=== PATIENT | male | born 1935 | race Caucasian/White ===

== ENCOUNTER 2018-07-21 16:07 | Inpatient (IN) | payer MEDICARE, OTHER, BC ==
[2018-07-21 21:35] LABS: ADD MAN DIFF? NO
[2018-07-21 21:37] LABS: WHITE BLOOD COUNT 18.5 10^3/ul (4.8-10.8)
[2018-07-21 21:37] LABS: BASOPHIL # 0.1 10^3/ul (0.0-0.1); BASOPHILS % 0.3 % (0.0-2.0); EOSINOPHILS % 0.1 % (0.0-7.0); HEMATOCRIT 38.2 % (42.0-52.0); HEMOGLOBIN 12.7 g/dl (14.0-18.0); LYMPHOCYTES # 2.1 10^3/ul (0.8-2.9); LYMPHOCYTES % 11.1 % (15.0-51.0); MEAN CORPUSCULAR HEMOGLOBIN 28.9 pg (29.0-33.0); MEAN CORPUSCULAR HGB CONC 33.2 g/dl (32.0-37.0); MEAN CORPUSCULAR VOLUME 86.8 fl (82.0-101.0); MONOCYTE # 1.3 10^3/ul (0.3-0.9); NEUTROPHILS % 80.9 % (39.0-77.0); PLATELET COUNT 456 10^3/UL (140-415); RED CELL DISTRIBUTION WIDTH 15.3 % (11.5-14.5)
[2018-07-21 21:52] LABS: INR 1.67; PROTIME 19.8 Sec (11.9-14.9); PT RATIO 1.5
[2018-07-21 21:54] LABS: PARTIAL THROMBOPLASTIN TIME 49.3 Sec (23.0-35.0)
[2018-07-21 22:06] LABS: ALBUMIN 3.9 g/dl (3.3-4.9); ALBUMIN/GLOBULIN RATIO 0.81; ALKALINE PHOSPHATASE 110 IU/L (42-121); ANION GAP 11 (5-13); ASPARTATE AMINO TRANSFERASE 16 IU/L (15-46); BILIRUBIN,INDIRECT 0.3 mg/dl (0-1.1); BILIRUBIN,TOTAL 0.3 mg/dl (0.2-1.3); BLOOD UREA NITROGEN 39 mg/dl (7-20); CALCIUM 9.9 mg/dl (8.4-10.2); CARBON DIOXIDE 23 mmol/L (21-31); CHLORIDE 104 mmol/L (97-110); CREATININE 1.39 mg/dl (0.61-1.24); GLUCOSE 114 mg/dl (70-220); SODIUM 138 mmol/L (135-144); TOTAL PROTEIN 8.7 g/dl (6.1-8.1)
[2018-07-21] MEDS: DIPHTH/TET/ACEL PERTUSS (ADULT) 0.5 ML VIAL IM* (22:10)
[2018-07-21] MEDS: SOD CHLORIDE 0.9% 1,000 ML IV (22:10)
[2018-07-21 22:11] LABS: ALANINE AMINOTRANSFERASE < 6 IU/L (13-69); ETHANOL < 10.0 mg/dl (0-0)
[2018-07-21 22:18] LABS: TROPONIN-I < 0.012 ng/ml (0.000-0.120)
[2018-07-21 22:37] LABS: FREE THYROXINE INDEX (Calc) 2.58 ug/ml (0.65-3.89); T3 UPTAKE 37.9 % (23.5-40.5); T4 (THYROXINE) 6.8 ug/dl (5.5-11.0)
[2018-07-21 23:32] LABS: AMPHETAMINE/METHAMPHETAMINE Negative (NEGATIVE); BARBITURATES Negative (NEGATIVE); BENZODIAZEPINES Negative (NEGATIVE); CANNABINOIDS Negative (NEGATIVE); COCAINE Negative (NEGATIVE); OPIATES Negative (NEGATIVE)
[2018-07-21] MEDS: CEFTRIAXONE 1 GM/50 ML (PMX) 50 ML IVPB (23:37)
[2018-07-21 23:38] LABS: ADD UMIC YES; UR ASCORBIC ACID NEGATIVE (NEGATIVE); UR BACTERIA MANY /HPF (NONE SEEN); UR BILIRUBIN (Dip) NEGATIVE (NEGATIVE); UR BLOOD (Dip) 3+ mg/dL (NEGATIVE); UR CLARITY TURBID (CLEAR); UR COLOR YELLOW (YELLOW); UR GLUCOSE (Dip) NEGATIVE (NEGATIVE); UR KETONES (Dip) NEGATIVE (NEGATIVE); UR LEUKOCYTE ESTERASE (Dip) 3+ Leu/ul (NEGATIVE); UR MUCUS FEW /HPF (NONE SEEN); UR NITRITE (Dip) NEGATIVE (NEGATIVE); UR RBC 121 /HPF (0-5); UR SPECIFIC GRAVITY (Dip) 1.013 (1.003-1.030); UR TOTAL PROTEIN (Dip) 2+ mg/dl (NEGATIVE); UR UROBILINOGEN (Dip) NEGATIVE (NEGATIVE); UR WBC > 182 /HPF (0-5)
[2018-07-22] MEDS ORDERED: ONDANSETRON 4 MG INJ IV ×2 (00:30)
[2018-07-22] MEDS ORDERED: BISACODYL (EC) 5 MG TAB PO (00:30)
[2018-07-22] MEDS ORDERED: ACETAMINOPHEN 325 MG TAB PO ×2 (00:30)
[2018-07-22] MEDS ORDERED: NACL 0.9% 3 ML SYG IV (00:30)
[2018-07-22] MEDS ORDERED: DOCUSATE SODIUM 100 MG CAP PO (00:30)
[2018-07-22] MEDS ORDERED: PENDING SANTYL ORDER FOR WOUND CARE XX (01:00)
[2018-07-22 06:06] LABS: ADD MAN DIFF? NO
[2018-07-22 06:28] LABS: BASOPHIL # 0.1 10^3/ul (0.0-0.1); BASOPHILS % 0.4 % (0.0-2.0); EOSINOPHILS % 0.3 % (0.0-7.0); HEMATOCRIT 33.4 % (42.0-52.0); HEMOGLOBIN 11.2 g/dl (14.0-18.0); LYMPHOCYTES # 2.1 10^3/ul (0.8-2.9); LYMPHOCYTES % 15.1 % (15.0-51.0); MEAN CORPUSCULAR HEMOGLOBIN 28.9 pg (29.0-33.0); MEAN CORPUSCULAR HGB CONC 33.5 g/dl (32.0-37.0); MEAN CORPUSCULAR VOLUME 86.3 fl (82.0-101.0); MEAN PLATELET VOLUME 9.7 fl (7.4-10.4); MONOCYTE # 1.5 10^3/ul (0.3-0.9); MONOCYTES % 10.5 % (0.0-11.0); NEUTROPHIL # 10.4 10^3/ul (1.6-7.5); NEUTROPHILS % 73.4 % (39.0-77.0); PLATELET COUNT 402 10^3/UL (140-415); RED BLOOD COUNT 3.87 10^6/ul (4.70-6.10); RED CELL DISTRIBUTION WIDTH 15.6 % (11.5-14.5)
[2018-07-22 06:28] LABS: WHITE BLOOD COUNT 14.2 10^3/ul (4.8-10.8)
[2018-07-22 07:10] LABS: ALANINE AMINOTRANSFERASE 7 IU/L (13-69); ALBUMIN 3.2 g/dl (3.3-4.9); ALBUMIN/GLOBULIN RATIO 0.82; ALKALINE PHOSPHATASE 84 IU/L (42-121); ANION GAP 11 (5-13); ASPARTATE AMINO TRANSFERASE 14 IU/L (15-46); BILIRUBIN,INDIRECT 0.3 mg/dl (0-1.1); BILIRUBIN,TOTAL 0.3 mg/dl (0.2-1.3); BLOOD UREA NITROGEN 37 mg/dl (7-20); CALCIUM 8.7 mg/dl (8.4-10.2); CARBON DIOXIDE 24 mmol/L (21-31); CHLORIDE 102 mmol/L (97-110); CREATININE 1.28 mg/dl (0.61-1.24); GLUCOSE 118 mg/dl (70-220); POTASSIUM 4.6 mmol/L (3.5-5.1); SODIUM 137 mmol/L (135-144); TOTAL PROTEIN 7.1 g/dl (6.1-8.1)
[2018-07-22 07:16] LABS: HEMOGLOBIN A1C 5.9 % (0-5.9)
[2018-07-22 07:42] LABS: THYROID STIMULATING HORMONE 0.946 MIU/L (0.465-4.680)
[2018-07-22] MEDS: SOD CHLORIDE 0.9% 500 ML IV (11:02)
[2018-07-22] MEDS: APIXABAN 5 MG TABLET PO ×2 (11:10→20:23)
[2018-07-23 05:19] LABS: ADD MAN DIFF? NO
[2018-07-23 05:22] LABS: WHITE BLOOD COUNT 10.6 10^3/ul (4.8-10.8)
[2018-07-23 05:22] LABS: BASOPHILS % 0.3 % (0.0-2.0); EOSINOPHILS # 0.1 10^3/ul (0.0-0.5); EOSINOPHILS % 0.7 % (0.0-7.0); HEMATOCRIT 32.8 % (42.0-52.0); LYMPHOCYTES # 2.2 10^3/ul (0.8-2.9); LYMPHOCYTES % 20.9 % (15.0-51.0); MEAN CORPUSCULAR HGB CONC 33.5 g/dl (32.0-37.0); MEAN CORPUSCULAR VOLUME 86.5 fl (82.0-101.0); MEAN PLATELET VOLUME 9.5 fl (7.4-10.4); MONOCYTES % 9.6 % (0.0-11.0); NEUTROPHIL # 7.2 10^3/ul (1.6-7.5); NEUTROPHILS % 68.2 % (39.0-77.0); PLATELET COUNT 384 10^3/UL (140-415); RED BLOOD COUNT 3.79 10^6/ul (4.70-6.10); RED CELL DISTRIBUTION WIDTH 15.5 % (11.5-14.5)
[2018-07-23 05:49] LABS: ALANINE AMINOTRANSFERASE 10 IU/L (13-69); ALBUMIN/GLOBULIN RATIO 0.81; ALKALINE PHOSPHATASE 77 IU/L (42-121); ANION GAP 8 (5-13); ASPARTATE AMINO TRANSFERASE 12 IU/L (15-46); BILIRUBIN,INDIRECT 0.3 mg/dl (0-1.1); BILIRUBIN,TOTAL 0.3 mg/dl (0.2-1.3); BLOOD UREA NITROGEN 31 mg/dl (7-20); CARBON DIOXIDE 26 mmol/L (21-31); CHLORIDE 102 mmol/L (97-110); CREATININE 1.06 mg/dl (0.61-1.24); GLUCOSE 90 mg/dl (70-220); POTASSIUM 5.3 mmol/L (3.5-5.1); SODIUM 136 mmol/L (135-144); TOTAL PROTEIN 6.7 g/dl (6.1-8.1)
[2018-07-23 05:50] LABS: MAGNESIUM 1.9 mg/dl (1.7-2.5)
[2018-07-23] MEDS: APIXABAN 5 MG TABLET PO ×2 (09:21→21:39)
[2018-07-23 11:39] LABS: POTASSIUM 4.6 mmol/L (3.5-5.1)
[2018-07-23] MEDS: CEPHALEXIN 500 MG CAP PO ×3 (12:01→23:05)
[2018-07-24 05:12] LABS: ADD MAN DIFF? NO
[2018-07-24] MEDS: CEPHALEXIN 500 MG CAP PO ×4 (05:15→23:28)
[2018-07-24 05:22] LABS: WHITE BLOOD COUNT 11.2 10^3/ul (4.8-10.8)
[2018-07-24 05:22] LABS: BASOPHIL # 0.1 10^3/ul (0.0-0.1); BASOPHILS % 0.4 % (0.0-2.0); EOSINOPHILS # 0.1 10^3/ul (0.0-0.5); EOSINOPHILS % 0.8 % (0.0-7.0); HEMATOCRIT 33.1 % (42.0-52.0); LYMPHOCYTES # 1.9 10^3/ul (0.8-2.9); LYMPHOCYTES % 16.6 % (15.0-51.0); MEAN CORPUSCULAR HEMOGLOBIN 28.5 pg (29.0-33.0); MEAN CORPUSCULAR HGB CONC 33.2 g/dl (32.0-37.0); MEAN CORPUSCULAR VOLUME 85.8 fl (82.0-101.0); MEAN PLATELET VOLUME 9.7 fl (7.4-10.4); MONOCYTE # 1.1 10^3/ul (0.3-0.9); MONOCYTES % 10.2 % (0.0-11.0); NEUTROPHILS % 71.7 % (39.0-77.0); PLATELET COUNT 396 10^3/UL (140-415); RED BLOOD COUNT 3.86 10^6/ul (4.70-6.10); RED CELL DISTRIBUTION WIDTH 15.3 % (11.5-14.5)
[2018-07-24 06:06] LABS: MAGNESIUM 1.9 mg/dl (1.7-2.5)
[2018-07-24 06:07] LABS: ALANINE AMINOTRANSFERASE 11 IU/L (13-69); ALBUMIN 3.1 g/dl (3.3-4.9); ALBUMIN/GLOBULIN RATIO 0.75; ALKALINE PHOSPHATASE 87 IU/L (42-121); ANION GAP 7 (5-13); ASPARTATE AMINO TRANSFERASE 21 IU/L (15-46); BILIRUBIN,INDIRECT 0.2 mg/dl (0-1.1); BILIRUBIN,TOTAL 0.2 mg/dl (0.2-1.3); BLOOD UREA NITROGEN 36 mg/dl (7-20); CALCIUM 9.1 mg/dl (8.4-10.2); CARBON DIOXIDE 26 mmol/L (21-31); CHLORIDE 105 mmol/L (97-110); CREATININE 1.14 mg/dl (0.61-1.24); GLUCOSE 100 mg/dl (70-220); POTASSIUM 5.1 mmol/L (3.5-5.1); SODIUM 138 mmol/L (135-144); TOTAL PROTEIN 7.2 g/dl (6.1-8.1)
[2018-07-24] MEDS: APIXABAN 5 MG TABLET PO ×2 (08:58→20:54)
[2018-07-25 05:26] LABS: ADD MAN DIFF? NO
[2018-07-25 05:31] LABS: BASOPHIL # 0.1 10^3/ul (0.0-0.1); BASOPHILS % 0.5 % (0.0-2.0); EOSINOPHILS # 0.1 10^3/ul (0.0-0.5); HEMOGLOBIN 11.7 g/dl (14.0-18.0); LYMPHOCYTES # 1.8 10^3/ul (0.8-2.9); LYMPHOCYTES % 16.1 % (15.0-51.0); MEAN CORPUSCULAR HEMOGLOBIN 28.8 pg (29.0-33.0); MEAN CORPUSCULAR HGB CONC 32.5 g/dl (32.0-37.0); MEAN CORPUSCULAR VOLUME 88.7 fl (82.0-101.0); MEAN PLATELET VOLUME 9.7 fl (7.4-10.4); MONOCYTES % 9.3 % (0.0-11.0); NEUTROPHIL # 8.1 10^3/ul (1.6-7.5); NEUTROPHILS % 72.7 % (39.0-77.0); PLATELET COUNT 420 10^3/UL (140-415); RED BLOOD COUNT 4.06 10^6/ul (4.70-6.10); RED CELL DISTRIBUTION WIDTH 15.4 % (11.5-14.5)
[2018-07-25 05:31] LABS: WHITE BLOOD COUNT 11.1 10^3/ul (4.8-10.8)
[2018-07-25 05:45] LABS: ALANINE AMINOTRANSFERASE 18 IU/L (13-69); ALBUMIN 3.3 g/dl (3.3-4.9); ALKALINE PHOSPHATASE 85 IU/L (42-121); ANION GAP 7 (5-13); ASPARTATE AMINO TRANSFERASE 17 IU/L (15-46); BILIRUBIN,INDIRECT 0.1 mg/dl (0-1.1); BILIRUBIN,TOTAL 0.1 mg/dl (0.2-1.3); BLOOD UREA NITROGEN 31 mg/dl (7-20); CARBON DIOXIDE 28 mmol/L (21-31); CHLORIDE 106 mmol/L (97-110); CREATININE 1.22 mg/dl (0.61-1.24); GLUCOSE 96 mg/dl (70-220); POTASSIUM 5.2 mmol/L (3.5-5.1); SODIUM 141 mmol/L (135-144); TOTAL PROTEIN 7.4 g/dl (6.1-8.1)
[2018-07-25] MEDS: CEPHALEXIN 500 MG CAP PO ×2 (05:46→13:25)
[2018-07-25] MEDS: APIXABAN 5 MG TABLET PO (09:05)
[2018-07-25 10:41] LABS: POTASSIUM 4.4 mmol/L (3.5-5.1)
== END 2018-07-25 15:50 | DRG 690 ==
LOC: MS1 23:40 → E/R 16:07
DX: N30.00 Acute cystitis without hematuria (principal); N17.9 Acute kidney failure, unspecified; G93.49 Other encephalopathy; B96.20 Unspecified Escherichia coli [E. coli] as the cause of diseases classified elsewhere; I48.0 Paroxysmal atrial fibrillation; I10 Essential (primary) hypertension; J44.9 Chronic obstructive pulmonary disease, unspecified; I48.2 Chronic atrial fibrillation; H61.23 Impacted cerumen, bilateral; E86.0 Dehydration; M25.522 Pain in left elbow; F03.90 Unspecified dementia, unspecified severity, without behavioral disturbance, psychotic disturbance, mood disturbance, and anxiety; S40.922A Unspecified superficial injury of left upper arm, initial encounter; Z86.73 Personal history of transient ischemic attack (TIA), and cerebral infarction without residual deficits; Z87.891 Personal history of nicotine dependence; W06.XXXA Fall from bed, initial encounter; Y92.003 Bedroom of unspecified non-institutional (private) residence as the place of occurrence of the external cause
CPT/HCPCS: 36415; 70450; 71045; 73080-LT; 80053; 80307; 81001; 82306; 82962; 83036; 83735; 84132; 84436; 84443; 84479; 84484; 85025; 85610; 85730; 87040-91; 87086; 90471; 90715; 93005; 93880; 96374; 97116; 97162; 97165; 97530; 99285-25

== ENCOUNTER 2018-07-25 15:54 | Inpatient (IN) | payer MEDICARE, OTHER ==
[2018-07-25] MEDS ORDERED: LACTULOSE 30ML CUP PO (16:30)
[2018-07-25] MEDS ORDERED: MAGNESIUM HYDROXIDE 30ML CUP PO (16:30)
[2018-07-25] MEDS ORDERED: BISACODYL 10 MG SUPP PR (16:30)
[2018-07-25] MEDS ORDERED: PENDING SANTYL ORDER FOR WOUND CARE XX (16:30)
[2018-07-25] MEDS ORDERED: BISACODYL (EC) 5 MG TAB PO (17:00)
[2018-07-25 17:40] LABS: ADD UMIC YES; UR ASCORBIC ACID 40 mg/dL (NEGATIVE); UR BILIRUBIN (Dip) NEGATIVE (NEGATIVE); UR BLOOD (Dip) NEGATIVE (NEGATIVE); UR CLARITY SLIGHTLY CLOUDY (CLEAR); UR COLOR YELLOW (YELLOW); UR GLUCOSE (Dip) NEGATIVE (NEGATIVE); UR KETONES (Dip) NEGATIVE (NEGATIVE); UR LEUKOCYTE ESTERASE (Dip) TRACE Leu/ul (NEGATIVE); UR NITRITE (Dip) NEGATIVE (NEGATIVE); UR RBC 5 /HPF (0-5); UR SPECIFIC GRAVITY (Dip) 1.017 (1.003-1.030); UR TOTAL PROTEIN (Dip) NEGATIVE (NEGATIVE); UR UROBILINOGEN (Dip) NEGATIVE (NEGATIVE); UR WBC 12 /HPF (0-5)
[2018-07-25] MEDS: CEPHALEXIN 500 MG CAP PO ×2 (17:53→23:10)
[2018-07-25] MEDS: APIXABAN 5 MG TABLET PO (21:36)
[2018-07-25] MEDS: DOCUSATE SODIUM 100 MG CAP PO (21:36)
[2018-07-25] MEDS: SENNA TAB PO (21:36)
[2018-07-26 06:41] LABS: ADD MAN DIFF? NO
[2018-07-26] MEDS: CEPHALEXIN 500 MG CAP PO ×4 (06:46→23:23)
[2018-07-26 06:48] LABS: WHITE BLOOD COUNT 10.3 10^3/ul (4.8-10.8)
[2018-07-26 06:48] LABS: BASOPHIL # 0.1 10^3/ul (0.0-0.1); BASOPHILS % 0.6 % (0.0-2.0); EOSINOPHILS # 0.1 10^3/ul (0.0-0.5); EOSINOPHILS % 1.3 % (0.0-7.0); HEMATOCRIT 33.1 % (42.0-52.0); HEMOGLOBIN 10.9 g/dl (14.0-18.0); LYMPHOCYTES # 2.1 10^3/ul (0.8-2.9); LYMPHOCYTES % 19.9 % (15.0-51.0); MEAN CORPUSCULAR HEMOGLOBIN 29.1 pg (29.0-33.0); MEAN CORPUSCULAR HGB CONC 32.9 g/dl (32.0-37.0); MEAN CORPUSCULAR VOLUME 88.3 fl (82.0-101.0); MEAN PLATELET VOLUME 9.5 fl (7.4-10.4); MONOCYTES % 9.5 % (0.0-11.0); NEUTROPHIL # 7.1 10^3/ul (1.6-7.5); NEUTROPHILS % 68.3 % (39.0-77.0); PLATELET COUNT 392 10^3/UL (140-415); RED BLOOD COUNT 3.75 10^6/ul (4.70-6.10); RED CELL DISTRIBUTION WIDTH 15.2 % (11.5-14.5)
[2018-07-26 07:17] LABS: ALANINE AMINOTRANSFERASE 14 IU/L (13-69); ALBUMIN 3.2 g/dl (3.3-4.9); ALBUMIN/GLOBULIN RATIO 0.84; ALKALINE PHOSPHATASE 76 IU/L (42-121); ANION GAP 7 (5-13); ASPARTATE AMINO TRANSFERASE 20 IU/L (15-46); BILIRUBIN,INDIRECT 0.2 mg/dl (0-1.1); BILIRUBIN,TOTAL 0.2 mg/dl (0.2-1.3); BLOOD UREA NITROGEN 35 mg/dl (7-20); CARBON DIOXIDE 29 mmol/L (21-31); CHLORIDE 104 mmol/L (97-110); CREATININE 1.15 mg/dl (0.61-1.24); GLUCOSE 97 mg/dl (70-220); SODIUM 140 mmol/L (135-144)
[2018-07-26] MEDS: APIXABAN 5 MG TABLET PO ×2 (08:29→20:19)
[2018-07-26] MEDS: NEOMYC/POLYMYX/BACIT 30 GM OINT TOP (08:29)
[2018-07-26] MEDS: SENNA TAB PO (08:29)
[2018-07-26] MEDS: DOCUSATE SODIUM 100 MG CAP PO ×2 (08:29→20:22)
[2018-07-27] MEDS: CEPHALEXIN 500 MG CAP PO ×4 (06:26→23:12)
[2018-07-27] MEDS: DOCUSATE SODIUM 100 MG CAP PO ×2 (08:14→21:44)
[2018-07-27] MEDS: APIXABAN 5 MG TABLET PO ×2 (08:14→20:01)
[2018-07-27] MEDS: SENNA TAB PO (08:14)
[2018-07-27] MEDS: NEOMYC/POLYMYX/BACIT 30 GM OINT TOP (08:16)
[2018-07-28] MEDS: CEPHALEXIN 500 MG CAP PO ×3 (05:09→18:26)
[2018-07-28] MEDS: SENNA TAB PO (08:23)
[2018-07-28] MEDS: APIXABAN 5 MG TABLET PO ×2 (08:24→20:32)
[2018-07-28] MEDS: DOCUSATE SODIUM 100 MG CAP PO ×2 (08:24→20:32)
[2018-07-28] MEDS: NEOMYC/POLYMYX/BACIT 30 GM OINT TOP (13:53)
[2018-07-28] MEDS: ACETAMINOPHEN 325 MG TAB PO (16:41)
[2018-07-29] MEDS: CEPHALEXIN 500 MG CAP PO ×4 (00:31→17:34)
[2018-07-29] MEDS: SENNA TAB PO (10:13)
[2018-07-29] MEDS: DOCUSATE SODIUM 100 MG CAP PO ×2 (10:14→20:41)
[2018-07-29] MEDS: APIXABAN 5 MG TABLET PO ×2 (10:14→20:41)
[2018-07-29] MEDS: NEOMYC/POLYMYX/BACIT 30 GM OINT TOP (10:15)
[2018-07-30] MEDS: CEPHALEXIN 500 MG CAP PO ×5 (00:13→23:17)
[2018-07-30] MEDS: SENNA TAB PO (08:04)
[2018-07-30] MEDS: NEOMYC/POLYMYX/BACIT 30 GM OINT TOP (08:05)
[2018-07-30] MEDS: APIXABAN 5 MG TABLET PO ×2 (08:05→21:19)
[2018-07-30] MEDS: DOCUSATE SODIUM 100 MG CAP PO ×2 (08:05→21:19)
[2018-07-30] MEDS: MELATONIN 5 MG TABLET PO (21:19)
[2018-07-30] MEDS: ACETAMINOPHEN 325 MG TAB PO (21:29)
[2018-07-31] MEDS: CEPHALEXIN 250 MG CAP PO ×4 (06:21→23:09)
[2018-07-31] MEDS: APIXABAN 5 MG TABLET PO ×2 (08:56→20:26)
[2018-07-31] MEDS: SENNA TAB PO (08:56)
[2018-07-31] MEDS: DOCUSATE SODIUM 100 MG CAP PO ×2 (08:56→20:26)
[2018-07-31] MEDS: NEOMYC/POLYMYX/BACIT 30 GM OINT TOP (08:56)
[2018-07-31] MEDS: MELATONIN 5 MG TABLET PO (20:26)
[2018-08-01] MEDS: CEPHALEXIN 250 MG CAP PO ×4 (06:54→23:29)
[2018-08-01] MEDS: SENNA TAB PO (08:20)
[2018-08-01] MEDS: NEOMYC/POLYMYX/BACIT 30 GM OINT TOP (08:20)
[2018-08-01] MEDS: APIXABAN 5 MG TABLET PO ×2 (08:20→20:07)
[2018-08-01] MEDS: DOCUSATE SODIUM 100 MG CAP PO ×2 (08:20→20:07)
[2018-08-01] MEDS: MELATONIN 5 MG TABLET PO (20:06)
[2018-08-02] MEDS: CEPHALEXIN 250 MG CAP PO ×2 (05:18→11:11)
[2018-08-02] MEDS: APIXABAN 5 MG TABLET PO (09:07)
[2018-08-02] MEDS: NEOMYC/POLYMYX/BACIT 30 GM OINT TOP (09:07)
[2018-08-02] MEDS: DOCUSATE SODIUM 100 MG CAP PO (09:07)
[2018-08-02] MEDS: SENNA TAB PO (09:07)
== END 2018-08-02 11:20 | DRG 71 ==
LOC: VRC 15:54
PROC: F07Z5ZZ Bed Mobility Treatment (ICD-10-PCS; principal; 2018-07-25)
PROC: F08Z2ZZ Grooming/Personal Hygiene Treatment (ICD-10-PCS; 2018-07-25)
DX: G93.40 Encephalopathy, unspecified (principal); N39.0 Urinary tract infection, site not specified; N17.9 Acute kidney failure, unspecified; Z86.73 Personal history of transient ischemic attack (TIA), and cerebral infarction without residual deficits; I48.91 Unspecified atrial fibrillation; S50.02XD Contusion of left elbow, subsequent encounter; S50.312D Abrasion of left elbow, subsequent encounter; W18.30XD Fall on same level, unspecified, subsequent encounter; I10 Essential (primary) hypertension; E78.00 Pure hypercholesterolemia, unspecified; D64.9 Anemia, unspecified; G47.00 Insomnia, unspecified; F03.90 Unspecified dementia, unspecified severity, without behavioral disturbance, psychotic disturbance, mood disturbance, and anxiety; B96.20 Unspecified Escherichia coli [E. coli] as the cause of diseases classified elsewhere
CPT/HCPCS: 80053; 81001; 85025; 87081; 87086; 92507; 92523; 92610; 97110; 97112; 97116; 97163; 97167; 97530; 97535; 97542